=== PATIENT | male | born 2005 | race Caucasian/White ===

== ENCOUNTER 2024-06-18 09:20 | Emergency (ER) | payer BC, SELFPAY ==
[2024-06-18 09:42] VITALS: BP 138/76; PULSE 94; RESP 18; TEMP 36.9; O2SAT 96; BMI 31.2
[2024-06-18 09:48] LABS: UTC Strep Screen (Rapid) Negative (Negative)
--- NOTE | 2024-06-18 09:52 | ED_ITS ---
Discharge Plan Disposition Patient Disposition: Home, Self-Care Condition: Good Prescriptions Prescriptions: New azithromycin [Zithromax] 250 mg tablet 250 mg PO UD DOSE PK Qty: 6 0RF Rx Instructions: Take two (2) tablets today, then one (1) tablet days #2 thru #5 methylprednisolone 4 mg Tablets,Dose Pack 4 mg PO DIRECTED 6 Days Qty: 21 0RF Rx Instructions: Take 1 pack as directed for 6 days albuterol sulfate [Ventolin HFA] 90 mcg/actuation HFA aerosol inhaler 2 puff inhalation Q6H PRN (Reason: shortness of breath or wheezing) 30 Days Qty: 6.7 5RF albuterol sulfate 2.5 mg /3 mL (0.083 %) solution for nebulization 2.5 mg inhalation Q6H 30 Days Qty: 360 5RF [id number]-ieyrdxzbd-[id number] [Bromfed DM] 2-30-10 mg/5 mL Syrup 5 ml PO Q6H PRN (Reason: Cough) Qty: 240 0RF Referrals Follow up/Referrals: Kin Rendon [Primary Care Provider] - See instructions Activity Restrictions/Add. Instructions Additional Instructions/Restrictions: Drink plenty of fluids. Take tylenol or ibuprofen for pain or fever. Take the medications as directed. Follow up with your regular doctor. GO TO THE ER FOR ANY WORSENING SYMPTOMS Clinical Impressions Clinical Impression: Asthma exacerbation, Pharyngitis Instructions Patient Instructions: Asthma -- Child, DI for Asthma -- Child, Albuterol Oral Inhalation Print Language Print Language: Romanian Discharge ED Provider: Anthony Pappas [facility] General Stated complaint: cough, congestion, sore throat Mode of Arrival: Ambulatory Source of Information: Patient Time Seen by Provider: 06/18/24 09:47 Description of Symptoms (Recalled from Triage Doc. by RN): COUGH, CONGESTION, SORE THROAT HEENT Symptoms (Recalled from RN notes): Yes Resp Symptoms (Recalled from RN notes): Yes Skin Symptoms (Recalled from RN notes): No MS Symptoms (Recalled from RN notes): No Functional Status (Recalled from RN notes): WNL Related Data Previous Rx's ?Medication ?Instructions ?Recorded albuterol sulfate 2.5 mg/3 mL 2.5 mg (3 mL) inhalation Q6H 30 06/18/24 (0.083 %) solution for nebulization days #360 mL albuterol sulfate 90 mcg/actuation 2 puff inhalation Q6H PRN 06/18/24 aerosol inhaler (Ventolin HFA) shortness of breath or wheezing 30 days #6.7 grams azithromycin 250 mg tablet 250 mg PO UD DOSE PK #6 tabs 06/18/24 (Zithromax) daigpyffibxtqqr-axlyqvczeqfvpqp-ID 5 ml PO Q6H PRN Cough #240 mL 06/18/24 2 mg-30 mg-10 mg/5 mL oral syrup (Bromfed DM) methylprednisolone 4 mg tablets in 4 mg PO DIRECTED 6 days #21 tabs 06/18/24 a dose pack Allergies Allergy/AdvReac Type Severity Reaction Status Date / Time No Known Allergies Allergy Verified 06/18/24 09:44 Worker's Comp Is this a Worker's Comp case?: No [facility] Disclaimer: The information contained in this section may have been updated after the patient was seen, as this information can be updated by other users. Social History Smoking Status: Never smoker alcohol intake: never current occupational status: employed Travel in the last 8 weeks: None ROS Obtained: Yes All systems reviewed & no additional complaints except as documented Constitutional Constitutional: Reports chills and Reports fever(s) Eyes Eyes: Denies eye discharge ENT Ears, Nose, Mouth, and Throat: Reports as per HPI Cardiovascular Cardiovascular: Denies chest pain Respiratory Respiratory: Denies chest congestion and Reports cough Gastrointestinal Gastrointestingal: Reports nausea; Denies abdominal pain, constipation, cramping, diarrhea or vomiting Musculoskeletal Musculoskeletal: Denies arthralgias Integumentary/Breasts Skin/Breast: Denies rash Neurologic Neurologic: Denies paresthesias Physical Exam General General appearance: alert and in no apparent distress Head Head exam: atraumatic, normocephalic and normal inspection Eye Eye exam: Present normal appearance, PERRL and EOMI ENT ENT exam: Present mucous membranes moist and normal external ear exam Expanded ENT Exam TM/Canal exam: Bilateral TM: erythema and bulging Nose exam: Absent sinus tenderness Mouth exam: Present normal external inspection; Absent drooling Teeth exam: Present normal inspection Throat exam: Present tonsillar erythema, tonsillomegaly and tonsillar exudate Neck Neck exam: Present normal inspection, full ROM and trachea midline; Absent tenderness, meningismus or lymphadenopathy Chest Chest inspection: Present normal inspection and symmetric chest wall rise; Absent tenderness Respiratory Respiratory exam: Present normal lung sounds bilaterally; Absent respiratory distress, wheezes, stridor or accessory muscle use Cardiovascular Cardiovascular exam: Present regular rate and normal rhythm; Absent systolic murmur or diastolic murmur Abdominal Exam Abdominal exam: Present soft and normal bowel sounds; Absent distention, tenderness, guarding, rebound or rigidity Extremities Exam Extremities exam: Present normal inspection and normal capillary refill; Absent calf tenderness Back Exam Back exam: Present normal inspection and full ROM; Absent tenderness, CVA tenderness (R) or CVA tenderness (L) Neurological Exam Neurological exam: Present alert, oriented X3 and CN II-XII intact Psychiatric Psychiatric exam: Present normal affect and normal mood Skin Skin exam: Present warm, dry, intact and normal color Medical Decision Making Medical Records Medical records reviewed: No I reviewed the patient's medical records. Screening: Per USPSTF and CDC recommendations, given the prevalence of disease in our region, it is our hospital?s policy to screen for HIV and viral Hepatitis for all patients aged 18 and over and those with ongoing risk factors. Frankie Inquiry Pt receiving controlled substance: No Vital Signs: 06/18/24 09:42 Temperature 98.5 F Temperature Source Oral Pulse Rate [Left Radial] 94 H Respiratory Rate 18 Blood Pressure [Left Arm] 138/76 Blood Pressure Mean [Left Arm] 96 02 Sat by Pulse Oximetry 96 Lab Data Lab results reviewed: Yes I reviewed the patient's lab results. Lab Results 06/18/24 09:39: Strep Scn Rapid Clinic Negative Orders (Tests/Meds): ORDERS Category Date Time Status Strep Screen Confirmation Stat Micro 06/18/24 09:39 Received
[2024-06-18 10:34] VITALS: BP 138/76; PULSE 94; RESP 18; TEMP 36.9
[2024-06-18 10:41] LABS: Coronavirus 19, PCR Not Detected (NotDetected); Influenza A, PCR Not Detected (NotDetected); Influenza B, PCR Not Detected (NotDetected)
== END 2024-06-18 10:40 | disposition home or self-care (01) ==
PROVIDERS: Emergency Provider Nurse Practitioner Family; PCP Internal Medicine
DX: J45.901 Unspecified asthma with (acute) exacerbation (principal); J02.9 Acute pharyngitis, unspecified; R50.9 Fever, unspecified; R05.9 Cough, unspecified; R09.81 Nasal congestion; R11.0 Nausea
CPT/HCPCS: 87636; 87880; 99212; G0381

== ENCOUNTER 2024-08-11 14:25 | Outpatient (CLI) | payer BC, SELFPAY ==
[2024-08-11 21:08] LABS: Coronavirus 19, PCR Not Detected (NotDetected); Human Rhinovirus Not Detected (NotDetected); Influenza B, PCR Not Detected (NotDetected); Respiratory Syncytial Virus Not Detected (NotDetected)
[2024-08-12 02:14] LABS: Influenza A, PCR Detected (NotDetected)
== END 2024-08-11 23:59 | disposition home or self-care (01) ==
LOC: LAB.DROPOF 08-12 04:06
PROVIDERS: PCP Nurse Practitioner; Visit Provider Nurse Practitioner
DX: R05.9 Cough, unspecified (principal); R50.9 Fever, unspecified
CPT/HCPCS: 87631